=== PATIENT | male | born 1970 | race African-American/Black ===

== ENCOUNTER 2017-03-07 18:43 | Emergency (ER) | payer MEDICAID ==
[~2017-03-07] VITALS: Ht 177.8 cm; Wt 136.0 kg
[2017-03-07] MEDS ORDERED: KETOROLAC 60MG/2ML VIAL IM ONE (22:15)
[2017-03-08 00:38] VITALS: BP 136/92
== END 2017-03-08 00:53 | disposition home or self-care (01) ==
LOC: ER 21:41
DX: M54.5 Low back pain (principal); R73.03 Prediabetes; F17.210 Nicotine dependence, cigarettes, uncomplicated; Z68.41 Body mass index [BMI] 40.0-44.9, adult; F12.10 Cannabis abuse, uncomplicated; E66.9 Obesity, unspecified
CPT/HCPCS: 99282; J1885